=== PATIENT | female | born 1955 | race Caucasian/White ===

== ENCOUNTER 2018-01-09 09:21 | Emergency (ER) | payer BC ==
[~2018-01-09] VITALS: Ht 172.7 cm; Wt 73.4 kg
[2018-01-09] MEDS ORDERED: SODIUM CHLOR 0.9% 1000 ML INJ 1,000 ML IV SCH (09:40)
[2018-01-09] MEDS ORDERED: diphenhydrAMINE HCL 50 MG/ML VIAL IVP ONE (09:45)
[2018-01-09] MEDS ORDERED: methylPREDNISolone SOD SUCC 125 MG/2 ML VIAL IV PUSH ONE (09:45)
[2018-01-09] MEDS ORDERED: SODIUM CHLORIDE 0.9% FLUSH 10 ML FLUSH IV FLUSH PRN (09:45)
[2018-01-09] MEDS ORDERED: FAMOTIDINE 20 MG/2 ML VIAL IV PUSH ONE (09:45)
[2018-01-09 09:55] VITALS: BP 132/60; PULSE 106; RESP 18; O2SAT 99
--- NOTE | 2018-01-09 10:11 | PD ---
HPI Chief Complaint: Allergic/Adverse Reaction Time Seen by Provider: 09:28 Travel History International Travel<30 days: No Contact w/Intl Traveler<30days: No History of Present Illness HPI This is a 62-year-old female who presents for allergic reaction. She states that 2 days ago, she developed diffuse urticaria. She states that she had recently eaten a new food/oil at an [place] restaurant and is not sure if she is allergic to it. No other new foods, medications, soaps, detergents. She went to an urgent care facility and was prescribed hydroxyzine and a low-dose prednisone taper after receiving a single injection of Decadron at their facility. She has not taken any antihistamines today. She states that she continues to have urticaria which are very pruritic. She states that she sometimes feels like she is wheezing. No difficulty speaking or swallowing. No facial edema. She is otherwise well recently without fever, chills, cough, congestion, vomiting, diarrhea. Symptoms are mild in severity. Partially alleviated by hydroxyzine. PFS Past Medical History Narrative Medical Peripheral neuropathy, hyperlipidemia Past Surgical History Surgical History: No Previous Surgery Social History Tobacco Use: No Allergies-Medications (Allergen,Severity, Reaction): Coded Allergies: Penicillins (Verified Allergy, Unknown, 01/09/18) Reported Meds & Prescriptions Reported Meds & Active Scripts Active Reported Hydroxyzine HCl 25 Mg Tab 25 Mg PO QID Prednisone 10 Mg Tab 10 Mg PO TID Prednisone 10 Mg Tab 10 Mg PO DAILY Simvastatin 20 Mg Tab 20 Mg PO DAILY Amitriptyline (Amitriptyline HCl) 50 Mg Tab 50 Mg PO HS Review of Systems Except as stated in HPI: all other systems reviewed are Neg Physical Exam Narrative GENERAL: Alert, well nourished, well appearing patient resting on the bed in no acute distress. Vital Signs reviewed SKIN: Focused skin assessment warm/dry. Diffuse urticaria with some areas of coalescence. All are blanching. No petechiae, purpura HEAD: Atraumatic. Normocephalic. EYES: Pupils equal and round. No scleral icterus. No injection or drainage. ENT: No nasal bleeding or discharge. Mucous membranes pink and moist. No lip, tongue, uvular edema. Breathing easily and swallowing and speaking without difficulty. NECK: Trachea midline. No JVD. Spontaneous, painless full range of motion with no meningismus CARDIOVASCULAR: Regular rate and rhythm. No murmur appreciated. Extremities warm and well perfused with bounding peripheral pulses RESPIRATORY: No accessory muscle use. Clear to auscultation. Breath sounds equal bilaterally. Breathing easily and speaking in full sentences GASTROINTESTINAL: Abdomen soft, non-tender, nondistended. Normal bowel sounds. No rigid, rebound, guarding MUSCULOSKELETAL: No obvious deformities. No clubbing. No cyanosis. No edema. Compartments are soft NEUROLOGICAL: Awake and alert. No obvious cranial nerve deficits. Motor grossly within normal limits. Normal speech. Sensation intact. Normal gait Data Data Last Documented VS Vital Signs Date Time Temp Pulse Resp B/P (MAP) Pulse Ox O2 Delivery O2 Flow Rate FiO2 01/09/18 10:39 Room Air 01/09/18 10:29 17 99 01/09/18 09:55 106 132/60 (84) Orders Orders Basic Metabolic Panel (Bmp) (01/09/18 09:40) Complete Blood Count With Diff (01/09/18 09:40) Ecg Monitoring (01/09/18 09:40) Iv Access Insert/Monitor (01/09/18 09:40) Oximetry (01/09/18 09:40) Diphenhydramine Inj (Benadryl Inj) (01/09/18 09:45) Methylprednisolone So Succ Inj (Solumedr (01/09/18 09:45) Famotidine Inj (Pepcid Inj) (01/09/18 09:45) Sodium Chlor 0.9% 1000 Ml Inj (Ns 1000 M (01/09/18 09:40) Sodium Chloride 0.9% Flush (Ns Flush) (01/09/18 09:45) I-Stat Profile (01/09/18 10:00) Labs Laboratory Tests Test 01/09/18 10:00 White Blood Count 8.2 TH/MM3 Red Blood Count 4.55 MIL/MM3 Hemoglobin 13.8 GM/DL Bedside Hemoglobin G/DL Hematocrit 40.4 % Bedside Hematocrit % Mean Corpuscular Volume 88.9 FL Mean Corpuscular Hemoglobin 30.2 PG Mean Corpuscular Hemoglobin Concent 34.0 % Red Cell Distribution Width 13.2 % Platelet Count 276 TH/MM3 Mean Platelet Volume 8.2 FL Neutrophils (%) (Auto) 78.2 % Lymphocytes (%) (Auto) 18.3 % Monocytes (%) (Auto) 2.7 % Eosinophils (%) (Auto) 0.2 % Basophils (%) (Auto) 0.6 % Neutrophils # (Auto) 6.5 TH/MM3 Lymphocytes # (Auto) 1.5 TH/MM3 Monocytes # (Auto) 0.2 TH/MM3 Eosinophils # (Auto) 0.0 TH/MM3 Basophils # (Auto) 0.0 TH/MM3 CBC Comment DIFF FINAL Differential Comment Bedside Sodium 142 MMOL/L Blood Urea Nitrogen 18 MG/DL Creatinine 0.95 MG/DL Random Glucose 98 MG/DL Calcium Level 8.8 MG/DL Sodium Level 139 MEQ/L Potassium Level 3.5 MEQ/L Chloride Level 108 MEQ/L Carbon Dioxide Level 22.8 MEQ/L Bedside Potassium 3.5 MMOL/L Bedside Chloride 109 MMOL/L Anion Gap 8 MEQ/L Bedside Blood Urea Nitrogen 19 MG/DL Bedside Creatinine 0.8 MG/DL Estimat Glomerular Filtration Rate 59 ML/MIN Bedside Glucose 100 MG/DL [facility] Medical Decision Making Medical Screen Exam Complete: Yes Emergency Medical Condition: Yes Medical Record Reviewed: Yes Interpretation(s) Laboratory Tests Test 01/09/18 10:00 White Blood Count 8.2 TH/MM3 Red Blood Count 4.55 MIL/MM3 Hemoglobin 13.8 GM/DL Bedside Hemoglobin G/DL Hematocrit 40.4 % Bedside Hematocrit % Mean Corpuscular Volume 88.9 FL Mean Corpuscular Hemoglobin 30.2 PG Mean Corpuscular Hemoglobin Concent 34.0 % Red Cell Distribution Width 13.2 % Platelet Count 276 TH/MM3 Mean Platelet Volume 8.2 FL Neutrophils (%) (Auto) 78.2 % Lymphocytes (%) (Auto) 18.3 % Monocytes (%) (Auto) 2.7 % Eosinophils (%) (Auto) 0.2 % Basophils (%) (Auto) 0.6 % Neutrophils # (Auto) 6.5 TH/MM3 Lymphocytes # (Auto) 1.5 TH/MM3 Monocytes # (Auto) 0.2 TH/MM3 Eosinophils # (Auto) 0.0 TH/MM3 Basophils # (Auto) 0.0 TH/MM3 CBC Comment DIFF FINAL Differential Comment Bedside Sodium 142 MMOL/L Blood Urea Nitrogen 18 MG/DL Creatinine 0.95 MG/DL Random Glucose 98 MG/DL Calcium Level 8.8 MG/DL Sodium Level 139 MEQ/L Potassium Level 3.5 MEQ/L Chloride Level 108 MEQ/L Carbon Dioxide Level 22.8 MEQ/L Bedside Potassium 3.5 MMOL/L Bedside Chloride 109 MMOL/L Anion Gap 8 MEQ/L Bedside Blood Urea Nitrogen 19 MG/DL Bedside Creatinine 0.8 MG/DL Estimat Glomerular Filtration Rate 59 ML/MIN Bedside Glucose 100 MG/DL Differential Diagnosis Allergic reaction, erythema multiforme, no evidence of angioedema or anaphylaxis Narrative Course IV access was established. Labs were performed. Patient was given IV fluids, benadryl, solumedrol and pepcid with improvement in urticaria. She has no evidence of anaphylaxis. I reviewed the results of the workup with her and plan for discharge with supportive care, continued antihistamine, addition of Pepcid and revision of prednisone dosing and close outpatient follow-up. Patient understands the importance of close outpatient follow-up. She understands she may require further testing and treatment as an outpatient. She understands strict return indications. She is comfortable with this plan and eager to go home. Diagnosis Primary Impression: Allergic reaction Qualified Codes: T78.40XA - Allergy, unspecified, initial encounter Referrals: Primary Care Physician 2 days Patient Instructions: General Allergic Reaction (ED), General Instructions Additional Instructions: Continue hydroxyzine as needed for itching. Take Pepcid as directed. Stop taking current prednisone and start the new prednisone prescription. Follow-up with primary physician within 2 days for recheck. Return with worsening symptoms. Med/Other Pt SpecificInfo: Prescription(s) given Scripts Famotidine (Pepcid) 20 Mg Tab 20 MG PO DAILY for 5 Days, #5 TAB 0 Refills Prov: Madyson Feng MD 01/09/18 Prednisone (Prednisone) 20 Mg Tab 60 MG PO DAILY for 5 Days, #15 TAB 0 Refills Take 40 mg (2 tablets) daily for 5 days Prov: Madyson Feng MD 01/09/18 Disposition: 01 DISCHARGE HOME Condition: Stable Madyson Feng MD Jan 09, 2018 10:11
[2018-01-09 10:12] LABS: AUTOMATED NEUTROPHIL # 6.5 TH/MM3 (1.8-7.7); BASOPHIL % 0.6 % (0.0-2.0); EOSINOPHIL % 0.2 % (0.0-4.0); HEMATOCRIT 40.4 % (35.0-46.0); HEMOGLOBIN 13.8 GM/DL (11.6-15.3); LYMPH % 18.3 % (9.0-44.0); LYMPHOCYTE # 1.5 TH/MM3 (1.0-4.8); MEAN CELL VOLUME 88.9 FL (80.0-100.0); MEAN CORPUSCULAR HEMOGLOBIN 30.2 PG (27.0-34.0); MEAN PLATELET VOLUME 8.2 FL (7.0-11.0); MONO % 2.7 % (0.0-8.0); MONOCYTE # 0.2 TH/MM3 (0-0.9); NEUT % 78.2 % (16.0-70.0); PLATELET COUNT 276 TH/MM3 (150-450); RED BLOOD COUNT 4.55 MIL/MM3 (4.00-5.30); RED CELL DISTRIBUTION WIDTH 13.2 % (11.6-17.2); WHITE BLOOD COUNT 8.2 TH/MM3 (4.0-11.0)
[2018-01-09] MEDS ORDERED: PRED10 PO ×2 (10:16)
[2018-01-09] MEDS ORDERED: AMIT50TA3 PO (10:16)
[2018-01-09] MEDS ORDERED: HYDR-3133 PO (10:16)
[2018-01-09] MEDS ORDERED: SIMV20TA PO (10:16)
[2018-01-09 10:19] LABS: CHLORIDE 108 MEQ/L (98-107); SODIUM (NA) 139 MEQ/L (136-145)
[2018-01-09 10:22] LABS: BICARBONATE 22.8 MEQ/L (21.0-32.0); CALCIUM 8.8 MG/DL (8.5-10.1); GLUCOSE,RANDOM 98 MG/DL (74-106)
[2018-01-09 10:23] LABS: BLOOD UREA NITROGEN 18 MG/DL (7-18)
[2018-01-09 10:26] LABS: CREATININE 0.95 MG/DL (0.50-1.00); GLOMERULAR FILTRATION RATE 59 ML/MIN (>89)
[2018-01-09 10:29] VITALS: RESP 17; O2SAT 99
[2018-01-09] MEDS ORDERED: FAMO1TAB37 PO (11:12)
[2018-01-09] MEDS ORDERED: PRED20 PO (11:12)
[2018-01-09 11:15] VITALS: BP 121/60; PULSE 85; RESP 17; O2SAT 100
== END 2018-01-09 11:45 | disposition home or self-care (01) ==
LOC: PHED 09:21
DX: T78.40XA Allergy, unspecified, initial encounter (principal); E78.5 Hyperlipidemia, unspecified; G62.9 Polyneuropathy, unspecified; Z88.0 Allergy status to penicillin; X58.XXXA Exposure to other specified factors, initial encounter
CPT/HCPCS: 80048; 85025; 96361; 96374; 96375; 99284; J1200; J2930; J7030